=== PATIENT | female | born 1950 | race Caucasian/White ===

== ENCOUNTER 2017-12-18 13:45 | Emergency (ER) | payer OTHER ==
[~2017-12-18] VITALS: Ht 157.5 cm; Wt 68.0 kg
[~2017-12-18 13:45] MED LIST: AMOX1TAB12 PO; CARDIZEM30 MG; GLIMEPIRIDE2 MG; SYNTHROID50 MCG; ULTRAM50 MG PO
== END 2017-12-18 18:43 | disposition home or self-care (01) ==
LOC: ER 13:45
DX: B34.9 Viral infection, unspecified (principal); J31.0 Chronic rhinitis; J11.1 Influenza due to unidentified influenza virus with other respiratory manifestations

== ENCOUNTER → 2017-12-24 | Emergency (ER) | payer OTHER ==
[~2017-12-24] VITALS: Ht 162.6 cm; Wt 68.0 kg
[~2017-12-24] MED LIST changes: +AIRBORNE EFFER1 EACH PO; +DOLOGESIC 500-1 EACH PO; +MUCINEX DM ER1 EAC1 PO; +PROMETH-CODEIN 65 ML PO
== END | disposition home or self-care (01) ==
LOC: ER 11:07
DX: J11.1 Influenza due to unidentified influenza virus with other respiratory manifestations (principal); J06.9 Acute upper respiratory infection, unspecified

== ENCOUNTER 2018-02-24 07:39 | Outpatient (CLI) | payer OTHER | END 2018-02-24 07:42 | disposition home or self-care (01) | LOC: NUCLEAR 07:39 | DX: R07.89 Other chest pain (principal); R94.31 Abnormal electrocardiogram [ECG] [EKG] | CPT/HCPCS: 78452; 93017; A9500; J0153 ==

== ENCOUNTER 2019-04-12 10:06 | Outpatient (CLI) | payer OTHER | END 2019-04-12 15:00 | disposition home or self-care (01) | LOC: LAB 10:06 | DX: D47.2 Monoclonal gammopathy (principal); C90.00 Multiple myeloma not having achieved remission ==

== ENCOUNTER 2019-04-16 11:43 | Outpatient (CLI) | payer OTHER | END 2019-04-16 15:00 | disposition home or self-care (01) | LOC: LAB 11:43 | DX: D47.2 Monoclonal gammopathy (principal); C90.00 Multiple myeloma not having achieved remission; Z11.4 Encounter for screening for human immunodeficiency virus [HIV] ==

== ENCOUNTER 2019-05-01 11:57 | Emergency (ER) | payer OTHER ==
[~2019-05-01] VITALS: Ht 162.6 cm; Wt 68.0 kg
[2019-05-01] MEDS ORDERED: ATACAND32 MG (12:14)
[2019-05-01] MEDS ORDERED: CLONAZEPAM0.5 MG (12:14)
[2019-05-01] MEDS ORDERED: CRESTOR40 MG (12:14)
== END 2019-05-01 14:15 | disposition home or self-care (01) ==
LOC: ER 11:57
DX: M79.672 Pain in left foot (principal)